=== PATIENT | female | born 1995 | race Caucasian/White ===

== ENCOUNTER 2016-11-15 11:22 | Emergency (ER) | END 2016-11-15 12:00 | disposition home or self-care (01) | DX: R21 Rash and other nonspecific skin eruption (principal) ==

== ENCOUNTER 2017-04-14 10:58 | Emergency (ER) | END 2017-04-14 11:37 | disposition home or self-care (01) ==

== ENCOUNTER 2018-09-13 07:42 | Emergency (ER) | payer OTHER ==
[~2018-09-13] VITALS: Ht 154.9 cm; Wt 88.5 kg
[~2018-09-13 07:42] MED LIST: ELIM TOP; FIORICET PO; GUAI-173 PO; HYDR-842 PO; PREN1TAB67 PO
[2018-09-13 07:45] VITALS: RESP 18; Ht 154.9 cm; Wt 88.5 kg
[2018-09-13] MEDS ORDERED: ONDANSETRON (ODT) 4 MG TAB ODT STA (08:03)
[2018-09-13] MEDS ORDERED: HYDROCODONE/APAP (5/325) TAB PO ONE (08:30)
[2018-09-13] MEDS ORDERED: SOD CHLORIDE 0.9% 1,000 ML IV STA (08:49)
[2018-09-13] MEDS ORDERED: morphine 4 MG/ML VIAL IV STA (08:49)
[2018-09-13] MEDS ORDERED: ONDANSETRON 4 MG INJ IV STA (08:49)
[2018-09-13] MEDS ORDERED: IODIXANOL LOCM 100 ML BTL ONE (10:26)
[2018-09-13] MEDS ORDERED: SOD CHLORIDE 0.9% 100 ML ONE (10:26)
[2018-09-13] MEDS ORDERED: NAPR-985 PO (12:54)
[2018-09-13] MEDS ORDERED: CIPR500T4 PO (12:54)
[2018-09-13 13:35] VITALS: BP 122/84; PULSE 80
--- NOTE | 2018-09-13 14:44 | ERD ---
ER Documentation Chief Complaint Chief Complaint painful & frequent urination, right side back pain x1 day HPI 23-year-old female presenting with frequent urination and left-sided flank pain. Patient states that she had some dysuria with no hematuria no fevers. Her back pain is been persistent over the last day. Has not taken medications. Denies medical problems. Allergy:erythromycin. Surgical history: csection. Social history denies ROS All systems reviewed and are negative except as per history of present illness. Medications Home Meds Active Scripts Naproxen* (Naprosyn*) 500 Mg Tablet, 500 MG PO BID PRN for PAIN AND/OR INFLAMMATION, #30 TAB Prov:EUGENIO ZIMMERMAN PA-C 09/13/18 Ciprofloxacin Hcl* (Ciprofloxacin Hcl*) 500 Mg Tablet, 500 MG PO BID for 10 Days, TAB Prov:EUGENIO ZIMMERMAN PA-C 09/13/18 Guaifenesin* (Tussin*) 100 Mg/5 Ml Syrup, 200 MG PO Q6 PRN for COUGH for 3 Days, ML Prov:MEGAN FINK 04/14/17 Acetamin/Butalbital/Caffeine* (Fioricet*) [id number] Tab, 1 TAB PO Q6H PRN for PAIN, #30 TAB Prov:MEGAN FINK 04/14/17 Hydroxyzine Hcl* (Atarax*) 25 Mg Tab, 25 MG PO Q6H PRN for ITCHING, #30 TAB Prov:SAVANNAH TURNER PA-C 11/15/16 Permethrin* (Elimite*) 5% Cr, 1 APPLIC TOP ONCE, #1 TUB Prov:SAVANNAH TURNER PA-C 11/15/16 Reported Medications Vits W-Ca,Fe,Fa(<1MG) ( Formula) 1 Each Tablet, 1 EACH PO DAILY, #1 09/04/12 Allergies Allergies: Uncoded Allergies: ERYTHROMYCIN (Allergy, Mild, RASH, 08/07/12) PMhx/Soc History of Surgery: No Anesthesia Reaction: No Hx Neurological Disorder: No Hx Respiratory Disorders: No Hx Cardiac Disorders: No Hx Psychiatric Problems: No Hx Miscellaneous Medical Probl: No Hx Alcohol Use: No Hx Substance Use: No Hx Tobacco Use: No FmHx Family History: No diabetes, No coronary disease, No other Physical Exam Vitals Vital Signs Date Temp Pulse Resp B/P (MAP) Pulse Ox O2 O2 Flow FiO2 Time Delivery Rate 09/13/18 80 122/84 13:35 (97) 09/13/18 97.9 82 18 120/76 99 07:45 (91) Physical Exam GENERAL: The patient is well-appearing, well-nourished, in no acute distress HEENT: Atraumatic. Conjunctivae are pink. Pupils equal, round, and reactive to light. There is no scleral icterus. Tympanic membranes clear bilaterally. Oropharynx clear. NECK: C-spine is soft and supple. There is no meningismus. There is no cervical lymphadenopathy. CHEST: Clear to auscultation bilaterally. There are no rales, wheezes or rhonchi. HEART: Regular rate and rhythm. No murmurs, clicks, rubs or gallops. ABDOMEN:Soft, nontender and nondistended. Good bowel sounds. No rebound or guarding. No gross peritonitis. No gross organomegaly or masses. BACK: No midline or flank tenderness. Result Diagram: 09/13/18 0904 09/13/18 0904 Results 24 hrs Laboratory Tests Test 09/13/18 08:16 09/13/18 08:17 09/13/18 09:04 Urine Color YELLOW Urine Clarity SLIGHTLY CLOUDY Urine pH 6.0 Urine Specific Omer 1.015 Urine Ketones NEGATIVE mg/dL Urine Nitrite NEGATIVE mg/dL Urine Bilirubin NEGATIVE mg/dL Urine Urobilinogen NEGATIVE mg/dL Urine Leukocyte Esterase NEGATIVE Lee/ul Urine Microscopic RBC 1 /HPF Urine Microscopic WBC 1 /HPF Urine Squamous Epithelial Cells FEW /HPF Urine Bacteria FEW /HPF Urine Hemoglobin NEGATIVE mg/dL Urine Glucose NEGATIVE mg/dL Urine Total Protein NEGATIVE mg/dl POC Beta HCG, Qualitative NEGATIVE White Blood Count 7.0 10^3/ul Red Blood Count 4.42 10^6/ul Hemoglobin 12.1 g/dl Hematocrit 38.4 % Mean Corpuscular Volume 86.9 fl Mean Corpuscular Hemoglobin 27.4 pg Mean Corpuscular 31.5 g/dl Hemoglobin Concent Red Cell Distribution Width 14.1 % Platelet Count 350 10^3/UL Mean Platelet Volume 11.2 fl Immature Granulocytes % 0.600 % Neutrophils % 73.7 % Lymphocytes % 17.9 % Monocytes % 5.4 % Eosinophils % 1.8 % Basophils % 0.6 % Nucleated Red Blood Cells % 0.0 /100WBC Immature Granulocytes # 0.040 10^3/ul Neutrophils # 5.2 10^3/ul Lymphocytes # 1.3 10^3/ul Monocytes # 0.4 10^3/ul Eosinophils # 0.1 10^3/ul Basophils # 0.0 10^3/ul Nucleated Red Blood Cells # 0.0 10^3/ul Sodium Level 139 mmol/L Potassium Level 4.0 mmol/L Chloride Level 105 mmol/L Carbon Dioxide Level 27 mmol/L Anion Gap 7 Blood Urea Nitrogen 5 mg/dl Creatinine 0.55 mg/dl Est Glomerular Filtrat > 60 mL/min Rate mL/min Glucose Level 94 mg/dl Calcium Level 8.9 mg/dl Total Bilirubin 0.2 mg/dl Direct Bilirubin 0.00 mg/dl Indirect Bilirubin 0.2 mg/dl Aspartate Amino Transf (AST/SGOT) 23 IU/L Alanine 30 IU/L Aminotransferase (ALT/SGPT) Alkaline Phosphatase 43 IU/L Total Protein 7.1 g/dl Albumin 4.0 g/dl Globulin 3.10 g/dl Albumin/Globulin Ratio 1.29 Lipase 63 U/L Current Medications Medications Dose Sig/Kole Start Time Status Last (Trade) Ordered Route PRN Stop Time Admin Dose Reason Admin 1 tab ONCE ONCE 09/13/18 DC 09/13/18 Acetaminophen PO 08:30 09/13/18 08:32 / 08:31 Hydrocodone Bitart ([place] (5/325)) Ondansetron 4 mg ONCE STAT 09/13/18 DC 09/13/18 HCl (Zofran ODT 08:03 09/13/18 08:32 Odt) 08:04 Sodium 1,000 ml @ Q1H STAT 09/13/18 DC 09/13/18 Chloride 1,000 mls/hr IV 08:49 09/13/18 09:15 09:48 Morphine 4 mg ONCE STAT 09/13/18 DC 09/13/18 Sulfate IV 08:49 09/13/18 09:16 (morphine) 08:51 Ondansetron 4 mg ONCE STAT 09/13/18 DC 09/13/18 HCl (Zofran IV 08:49 09/13/18 09:16 Inj) 08:51 IV Flush 10 ml STK-MED 09/13/18 DC (NS 10 ml) ONCE .ROUTE 10:09/13/18 10:27 Sodium 100 ml @ ud STK-MED 09/13/18 DC Chloride ONCE .ROUTE 10:09/13/18 10:27 Iodixanol 100 ml STK-MED 09/13/18 DC (Visipaque ONCE .ROUTE 10:09/13/18 Locm) 10:27 Procedures/MDM DIAGNOSTIC IMAGING REPORT Patient: NISSA MCCRACKEN : 1995 Age: 23 Sex: F MR #: [id number] DOS: 09/13/18 1138 Ordering MD: LANI ZIMMERMAN PA-C Location: [facility] Room/Bed: PROCEDURE: US Abdomen. CLINICAL INDICATION: abdominal pain TECHNIQUE: Multiple real-time images were acquired of the patient's right upper quadrant abdomen and retroperitoneum utilizing a high resolution transducer. COMPARISON: CT 09/13/2018 FINDINGS: The liver demonstrates normal echogenicity. The liver is normal in size and no focal solid lesions are seen. The liver measures 17.5 cm in length. The portal vein is patent with normal direction of flow. No intrahepatic biliary dilatation is seen. There is a 2.5 cm mobile calcified stone within the gallbladder. There is no pericholecystic fluid or gallbladder wall thickening. The common bile duct measures 4 mm in maximal dimension. The pancreas is not well seen due to overlying bowel gas. No free fluid is identified. The right kidney is normal in size, and demonstrate normal echogenicity and cortical thickness. The right kidney measures 10.6 cm in long dimension. There is a right extrarenal pelvis.. There are no kidney stones. RPTAT: AA IMPRESSION: Single calcified stone within the gallbladder. Right extrarenal pelvis. DIAGNOSTIC IMAGING REPORT Patient: NISSA MCCRACKEN : 1995 Age: 23 Sex: F MR #: [id number] DOS: 09/13/18 0849 Ordering MD: LANI ZIMMERMAN PA-C Location: [facility] Room/Bed: PROCEDURE: CT ABDOMEN AND PELVIS WITH IV CONTRAST. CLINICAL INDICATION: Abdominal pain TECHNIQUE: CT scan of the abdomen and pelvis with contrast was performed on a multidetector high-resolution CT scanner following the use of IV contrast. 100 cc Visipaque 320 was administered. Coronal and sagittal reformatted images were obtained from the axial source images. Images were reviewed on a high-resolution PACS workstation. The total exam CTDI equals 19.3 mGy and the total exam DLP equals 1066.5 mGy-cm. One or more of the following dose reduction techniques were used: Automated exposure control. Adjustment of the mA and/or kV according to patient size. Use of iterative reconstruction technique. DICOM images are available. COMPARISON: None FINDINGS: CT abdomen: The lung bases are clear. The heart size is within normal limits. There is no significant pericardial effusion. Hepatic morphology is within normal limits. No gross contour deforming masses. The gallbladder is identified with mild pericholecystic fatty stranding.. No evidence of intrahepatic or extrahepatic biliary dilatation. The spleen and pancreas are within normal limits. Both adrenal glands are within normal limits. Both kidneys are in normal anatomic position. No evidence of obstruction or hydronephrosis. No gross renal/ureteric calculi. The visualized GI tract demonstrate normal caliber loops of small large bowel. No evidence of bowel obstruction. Stool filled loops of large bowel suggestive of constipation. The appendix is within normal limits. Aorta is unremarkable. No significant retroperitoneal lymphadenopathy. CT pelvis: The bladder is partially collapsed with thickening of the archer. The uterus is within normal limits. Bilateral cystic adnexa are identified. Findings are likely physiologic within normal limits. Stool noted within the rectosigmoid colon. No significant free fluid. No significant pelvic lymphadenopathy. The visualized osseous structures appears to be within normal limits. Grade 1 retrolisthesis of L4-L5. IMPRESSION: 1. Thickening of the archer of the bladder, cannot exclude infectious versus inflammatory cystitis. Correlate with urinalysis. 2. No evidence of bowel obstruction. Stool filled loops of large bowel s uggestive of constipation. The appendix is within normal limits. 3. Mild pericholecystic fatty stranding. Correlate with clinical symptoms. Consider follow-up ultrasound of the right upper quadrant to exclude cholecystitis if clinically indicated. MDM: 23-year-old female presenting with UTI symptoms concerning for pyelonephritis. Patient does have thickening noted on CT scan of the bladder which may coincide with urinary symptoms. Urinalysis is not concerning for infection however I will treat with antibiotics. Patient CT scan is otherwise unremarkable. Patient is nontoxic-appearing. Patient is discharged with strict ER precautions and told to follow-up with primary care within 1 to 2 days for close evaluation. All questions answered at discharge Departure Diagnosis: Primary Impression: Gallstones Additional Impression: Flank pain Condition: Stable Patient Instructions: Gallstones, Flank Pain, Uncertain Cause Additional Instructions: FOLLOW UP WITH YOUR PRIMARY CARE PHYSICIAN TOMORROW.Return to this facility if you are not improving as expected. EUGENIO ZIMMERMAN PA-C Sep 13, 2018 14:44
== END 2018-09-13 13:37 | disposition home or self-care (01) ==
LOC: FTE 07:42
DX: K80.20 Calculus of gallbladder without cholecystitis without obstruction (principal)
CPT/HCPCS: 74177; 76705; 80053; 81001; 81025; 83690; 85025; 87086; J2270; J2405; J7030; Q9967; Z7610; 36415; 81003; 96361; 96374; 96375

== ENCOUNTER 2019-01-07 10:42 | Emergency (ER) | payer OTHER ==
[~2019-01-07] VITALS: Ht 154.9 cm; Wt 82.6 kg
[~2019-01-07 10:42] MED LIST changes: +CIPR500T4 PO; +HYDR-843 PO; +IBUP-1542 PO; +NAPR-985 PO
[2019-01-07 11:01] VITALS: BP 128/81; PULSE 100; RESP 20; Ht 154.9 cm; Wt 82.6 kg
== END 2019-01-07 12:04 | disposition home or self-care (01) ==
LOC: FTE 10:42
DX: L29.9 Pruritus, unspecified (principal)
CPT/HCPCS: 99283